=== PATIENT | male | born 1980 | race Caucasian/White ===

== ENCOUNTER 2025-06-02 14:39 | Observation (INO) | payer OTHER, SELFPAY ==
[2025-06-02] VITALS (7 sets, daily range): BP systolic 176–195; BP diastolic 105–120; PULSE 77–97; RESP 14–26; TEMP 37.1–37.5; O2SAT 88–100; BMI 36.8; BMI 36.9
--- NOTE | 2025-06-02 16:03 | CT_ITS ---
PROCEDURE: CT BRAIN/HEAD WITHOUT CONTRAST 06/02/2025 REASON FOR EXAM: DIZZINESS, HYPERTENSION TECHNIQUE: Procedure Code: CTBR Modality: CT Procedure: BRAIN/HEAD WITHOUT CONTRAST Coronal and Sagittal reconstruction series were provided. One or more dose reduction techniques were used (e.g., Automated exposure control, adjustment of the mA and/or kV according to patient size, use of iterative reconstruction technique. RADIATION DOSE SUMMARY: CTDlvol: 44.99 mGy DLP: 846.73 mGycm COMPARISON: None. FINDINGS: No acute intracranial hemorrhage, extra-axial collection, mass effect or evidence of acute infarct. Ventricles and subarachnoid spaces are normal in size. Orbital contents are unremarkable. Intact skull base and calvarium. Mild mucosal thickening in the floors of the maxillary sinuses, and in the anterior left ethmoid air cells/left frontoethmoidal recess. No mastoid effusions. CT/Brain/Head without Contrast IMPRESSION: No acute intracranial abnormality. Reading Location: [id number]
--- NOTE | 2025-06-02 16:10 | EDS_ITS ---
HPI History of Present Illness Chief Complaint: Dizziness Narrative Narrative: 44-year-old male who denies significant past medical history presents from urgent care with elevated blood pressure, as well as dizziness and nausea. He states his symptoms began on night, approximately 4 days ago. He states that he was having more vertiginous type symptoms. He awoke in the middle of the night with nausea and dry heaving. He states that he was having problems ambulating because he had to see legs. His gait felt unsteady. He spent the night dry heaving and on the floor by the toilet because of all the dizziness. He denies any headache. He thought his symptoms resolved, but over the last few days he has had episodes where his hearing out of his right ear is diminished severely. He states that it comes and goes. When it goes, he feels very nauseated. He has not had any vomiting. No fevers or chills, no chest pain or shortness of breath, no headaches. He went to urgent care and it was noticed that his blood pressure was over 200 systolic. He denies any history of hypertension, no family history of hypertension as well. PFSH [facility] Home Medications ?Medication ?Instructions ?Recorded ?Last Taken ?Type cholecalciferol (vitamin D3) 25 25 mcg PO DAILY Unknown History mcg (1,000 unit) chewable tablet (VitaJoy Daily D) echinacea 380 mg capsule 380 mg PO DAILY 06/02/25 Unk nown History magnesium 250 mg tablet 250 mg PO DAILY 06/02/25 Unk nown History omega-3 fatty acids 1,000 mg 1,000 mg PO DAILY 5 Unknown History capsule vitamin E 268 mg (400 unit) capsule 268 mg PO DAILY Unknown History Allergy/AdvReac Type Severity Reaction Status Date / Time Penicillins Allergy Vomiting Verified 06/02/25 14:44 Social History Smoking Status: Never smoker ROS ROS ED ROS Narrative Review of systems positive for hearing loss out of right ear, intermittent. Comes and goes for the last 4 days. No headache. Positive dizziness with nausea and dry heaving but no vomiting. No fevers or chills. No chest pain or shortness of breath. No exacerbating or alleviating factors. Not necessarily worse with standing. Hearing diminished most recently while in the hallway, lasting 2 minutes. EXAM Physical Exam Narrative Exam Narrative: Differential diagnosis includes but not limited to acoustic neuroma versus hypertensive urgency versus emergency. Also the differential would be brain mass. He does have elevated blood pressure of 195/115 here. He will be given hydralazine and placed on a cardiac rehabilitation specialist. Basic lab work will be obtained. I do feel he merits CT of the brain. However, his neurological examination is nonfocal, nonlateralizing. I have low suspicion for stroke or intracranial hemorrhage. Inspection of the right TM shows no evidence of erythema or perforation. No mastoid tenderness or erythema. No cerumen impaction. Const Vital Signs: 06/02/25 14:40 06/02/25 14:47 06/02/25 16:39 Temperature 99.5 F H Temperature Source Oral Pulse Rate 97 77 Respiratory Rate 16 14 Respiratory Pattern Blood Pressure 195/115 H 195/120 H Blood Pressure Mean 141 145 Pulse Ox 88 98 Oxygen Delivery Method Room Air Room Air Room Air 06/02/25 17:04 06/02/25 18:00 Temperature Temperature Source Pulse Rate 82 Respiratory Rate 18 Respiratory Pattern Normal Blood Pressure 191/107 H Blood Pressure Mean 135 Pulse Ox 98 Oxygen Delivery Method Room Air MDM MDM MDM Narrative Medical decision making narrative: The differential diagnosis includes but not limited to intracranial hemorrhage versus hypertensive encephalopathy versus hypertensive urgency versus emergency. EKG was obtained and interpreted by myself independently as normal sinus rhythm at 78 bpm without ectopy or acute ST changes. No STEMI. Patient is not having chest pain as well. I reviewed his laboratory work and he has normal white count 6.1, hemoglobin 14.4, hematocrit 40.4, platelet count 199. Sodium normal at 136 with potassium 3.3, normal carbon dioxide of 27.9, BUN of 15 and creatinine 1.02. Glucose 114 with a normal anion gap of 8. Calcium normal at 8.7. I reviewed the radiology report of the CT of the brain which shows no acute process. Patient was placed on a cardiac rehabilitation specialist. His blood pressure remains elevated even after 10 of hydralazine. It was as low as 181 systolic, but is now 191/107. He will be given additional hydralazine, and he states that he did have another episode of hearing loss out of his right ear that was brief. Given his accelerated hypertension, I do feel that he requires observation for blood pressure control. Patient will be discussed with the hospitalist for observation versus admission. Disposition is assigned to observation to the PCU. Patient is in stable condition. History & Record Review Discussion w/independent historian: Patient Additional record(s) reviewed:: No prior records (No prior ED visit) Lab Data Attestation: I reviewed the patient's lab results. Labs: Laboratory Results - last 24 hr 06/02/25 16:25 WBC 6.1 RBC 4.60 Hgb 14.4 Hct 40.4 MCV 87.8 MCH 31.3 MCHC 35.6 RDW Std Deviation 39.3 RDW Coeff of Abdirizak 12.1 Plt Count 199 MPV 9.8 Immature Gran % (Auto) 0.200 Neut % (Auto) 71.4 H Lymph % (Auto) 17.3 L Harrison % (Auto) 10.0 Eos % (Auto) 0.8 Baso % (Auto) 0.3 Absolute Neuts (auto) 4.3 Absolute Lymphs (auto) 1.05 Nucleated RBC % 0 Sodium 136 Potassium 3.3 Chloride 100 Carbon Dioxide 27.9 Anion Gap 8 BUN 15 Creatinine 1.02 Estim Creat Clear Calc 112.24 Est GFR (MDRD) Non-Af 92 BUN/Creatinine Ratio 15.0 Glucose 114 H Calcium 8.7 Radiography Diagnostic Testing: Clinical Impression(s) from Imaging Studies Brain CT 06/02/25 16:03 IMPRESSION: No acute intracranial abnormality. Reading Location: [facility] Management Discussion w/another healthcare provider: Hospitalist (Dr. Gokul Vergara) Discharge Plan Dx/Rx/DC Orders Clinical Impression: Severe uncontrolled hypertension, Hypertensive urgency, Hearing loss associated with syndrome of right ear, Dizziness Disposition Disposition: Acute Care Hospital [facility]
[2025-06-02 16:43] LABS: Hematocrit 40.4 % (40-54); Hemoglobin 14.4 g/dL (13.0-16.5); Immature Granulocytes Count 0.010 X10^3/uL (0.0-0.0); Mean Corp Hgb Conc 35.6 g/dL (32-36); Mean Corpuscular Volume 87.8 fL (80-94); Mean Platelet Vol. 9.8 fl (6.2-12.0); NRBC Flagged by Analyzer 0 % (0-5); Platelet Count 199 K/mm3 (150-450); RBC Distribution Width CV 12.1 % (11.6-14.6); RBC Distribution Width SD 39.3 fl (35.1-43.9); Red Blood Count 4.60 M/mm3 (4.6-6.2); White Blood Count 6.1 K/mm3 (4.4-11.0)
[2025-06-02 17:13] LABS: Anion Gap 8 (5-15); BUN 15 mg/dL (4-19); BUN/Creat Ratio 15.0 RATIO (10-20); Calcium,Total 8.7 mg/dL (7.6-11.0); Carbon Dioxide 27.9 mmol/L (21.0-32.0); Chloride 100 mmol/L (98-108); Estimated Creatinine Clearance 112.24 ml/min (50-250); Glucose 114 mg/dL (70-99); Potassium 3.3 mmol/L (3.3-5.1)
--- NOTE | 2025-06-02 18:45 | PCM.HP.STD ---
[facility] - General General Date of Admission: 06/02/25 Date of Service: 06/02/25 Chief Complaint: Dizziness with ataxia and nausea/vomiting HPI Narrative ANNEMARIE HUDSON, is a 44 M who presented to [facility] ED on 06/02/2025 with dizziness with ataxia and nausea/vomiting. Medical history significant for hypertension and class II obesity. Patient was on lisinopril about 2 to 3 years ago but notes he was able to come off of this due to improvement in lifestyle modifications. Not currently taking any home medications. Patient developed symptoms of dizziness with ataxia and nausea with vomiting about 4 days ago. No prior history of vertigo. He felt the symptoms resolved by midday Monday but over the last few days he has had episodes where hearing out of his right ear is severely diminished. He notes that when the hearing improves, he feels very nauseated. He otherwise denies any fevers or chills, chest pain, shortness of breath or headaches. He went to urgent care today who noted that his blood pressure was over 200 systolic so they sent him to the ED for further evaluation. In the ED his blood pressure was in the 190s over 100s. He was given 2 doses of IV hydralazine 10 mg without much improvement. He was reporting some vertigo type symptoms in the ED that improved with him laying back in bed. Given his persistent hypertension and dizziness/balance concerns, hospitalist was contacted for admission. I saw the patient at bedside in the ED. Patient was laying back in bed with fairly comfortably, in no acute distress. He denied any vertigo type symptoms currently but did note that when he sits up he has some of the symptoms. He has felt anxious since arrival here as he has been seeing his blood pressure is remaining elevated. Has never had blood pressures this elevated before. Patient lives at home with his 20-year-old son and has good functional status at baseline. No other recent medical concerns. Will be admitted for further management. [facility] Medical History (Updated 06/02/25 @ 23:[address] Tino Vergara, ) Hearing loss, right Anxiety Kidney stones Non-smoker Migraines Home Medications ?Medication ?Instructions ?Recorded ?Last Taken ?Type cholecalciferol (vitamin D3) 25 25 mcg PO DAILY 06/02/25 Unknown History mcg (1,000 unit) chewable tablet (VitaJoy Daily D) echinacea 380 mg capsule 380 mg PO DAILY 06/02/25 Unknown History magnesium 250 mg tablet 250 mg PO DAILY 06/02/25 Unknown History omega-3 fatty acids 1,000 mg 1,000 mg PO DAILY 06/02/25 Unknown History capsule vitamin E 268 mg (400 unit) capsule 268 mg PO DAILY 06/02/25 Unknown History Allergy/AdvReac Type Severity Reaction Status Date / Time Penicillins Allergy Vomiting Verified 06/02/25 14:44 Surgical History (Updated 06/02/25 @ 20:59 by Genia Amaya) History of repair of biceps tendon Social History Smoking Status: Never smoker ROS Constitutional Constitutional: Denies chills, fatigue, fever(s) or weakness Eyes Eyes: Denies change in vision Cardiovascular Cardiovascular: Denies chest pain, dyspnea on exertion, edema, lightheadedness or palpitations Respiratory/Chest Respiratory/Chest: Denies cough or shortness of breath at rest Gastrointestinal Gastrointestinal: Reports nausea and vomiting; Denies abdominal pain, constipation or diarrhea Musculoskeletal Musculoskeletal: Denies arthralgias or myalgias Neurologic Neurologic: Reports abnormal gait, disequilibrium and dizziness; Denies abnormal speech, confusion, focal weakness, headache(s), numbness or tingling Vital Signs Vital Signs Vital Signs: 06/02/25 14:40 06/02/25 14:47 06/02/25 16:39 Temperature 99.5 F H Temperature Source Oral Pulse Rate 97 77 Respiratory Rate 16 14 Respiratory Pattern Blood Pressure 195/115 H 195/120 H Blood Pressure Mean 141 145 Pulse Ox 88 98 Oxygen Delivery Method Room Air Room Air Room Air 06/02/25 17:04 06/02/25 18:00 Temperature Temperature Source Pulse Rate 82 Respiratory Rate 18 Respiratory Pattern Normal Blood Pressure 191/107 H Blood Pressure Mean 135 Pulse Ox 98 Oxygen Delivery Method Room Air Weight Weight: 113.171 kg Body Mass Index (BMI) 36.8 Physical Exam Const alert, oriented x3 and no apparent distress Constitutional Narrative: Pleasant middle-age male, class II obesity, laying back in bed fairly comfortably, conversing normally, in no acute distress. General Appearance: cooperative and comfortable HEENT normocephalic, head/scalp atraumatic, hearing grossly normal bilaterally, nasal mucous membranes and turbinates normal and moist oral mucous membranes Eyes PERRL, EOMs intact bilaterally and conjunctivae normal Neck full ROM Chest inspection of chest normal Resp normal respiratory effort, normal air movement, no use of accessory muscles and clear to auscultation bilaterally Cardio regular rate, regular rhythm, no murmurs and peripheral pulses 2+ throughout GI normal to inspection, nondistended, normoactive bowel sounds, soft to palpation, non-tender and non-distended Back/Spine normal ROM Extremity normal to inspection, full ROM and no pedal edema Skin no rashes or lesions noted Neuro oriented x3, moves all extremities and no focal motor deficits Coordination / Balance: [id number] test normal and [id number] test normal Speech: speech normal Motor Exam: strength 5/5 throughout Psych mental status grossly normal Mood & Affect: anxious Results Lab / Micro Data 06/02/25 16:25 06/02/25 16:25 Labs: Laboratory Results - last 24 hr 06/02/25 16:25: WBC 6.1, RBC 4.60, Hgb 14.4, Hct 40.4, MCV 87.8, MCH 31.3, MCHC 35.6, RDW Std Deviation 39.3, RDW Coeff of Abdirizak 12.1, Plt Count 199, MPV 9.8, Immature Gran % (Auto) 0.200, Neut % (Auto) 71.4 H, Lymph % (Auto) 17.3 L, Calhoun % (Auto) 10.0, Eos % (Auto) 0.8, Baso % (Auto) 0.3, Absolute Neuts (auto) 4.3, Absolute Lymphs (auto) 1.05, Nucleated RBC % 0, Sodium 136, Potassium 3.3, Chloride 100, Carbon Dioxide 27.9, Anion Gap 8, BUN 15, Creatinine 1.02, Estim Creat Clear Calc 112.24, Est GFR (MDRD) Non-Af 92, BUN/Creatinine Ratio 15.0, Glucose 114 H, Calcium 8.7 Imaging Radiology Impression Brain CT 06/02/25 16:03 IMPRESSION: No acute intracranial abnormality. Reading Location: [facility] Assessment & Plan Assessment/Plan (1) Stroke-like symptoms: (2) Hypertensive urgency: PLAN: Plan Patient is a 44-year-old male who presented [facility] ED on 06/02/2025 with dizziness with ataxia and nausea/vomiting. 1. Strokelike symptoms with hypertensive urgency ? Admit under observation status to PCU. Neurology consulted. Presented with dizziness with ataxia and nausea/vomiting. Onset 4 days prior to admission and has been intermittent since then. Has been accompanied by intermittent hearing loss. Blood pressure severely elevated to the 190s over 110s in the ED. Given 2 doses of IV hydralazine 10 mg without much improvement. Prior history of hypertension, was on lisinopril about 2 to 3 years ago but then states he was able to come off after lifestyle modifications. No prior history of severe hypertension like this. CT head negative. Given his persistent hypertension and the symptoms, will need to rule out stroke. Orders placed per stroke protocol order set. MRI brain and echo ordered. A.m. lipid panel ordered. A1c and TSH normal. PT/OT/case management consulted. Will initiate baby aspirin and statin. Appreciate further neurology recommendations. 2. Class II obesity ? BMI 36 on admit. Complicates hospital course and care. Encouraged lifestyle modifications. DVT prophylaxis: SCDs CODE STATUS: Full code, verified Expected disposition: Home, 1 to 2 days Total clinical time spent by myself addressing the patient's medical issues, reviewing all the data, and collaborating with patient's care team: 58 minutes. Charges/Coding Visit Charges Inpatient E&M: 01287 Init Hosp L2
--- NOTE | 2025-06-02 18:51 | MRI_ITS ---
PROCEDURE: BRAIN WITHOUT CONTRAST 06/03/2025 REASON FOR EXAM: CVA RULE OUT TECHNIQUE: Procedure Code: MRIBR Modality: MR Procedure: BRAIN WITHOUT CONTRAST Multiplanar and multisequence images were obtained. COMPARISON: CT head June 02, 2025. FINDINGS: Brain: Several (around 10) hyperintense foci on T2 and FLAIR in the subcortical white matter, predominantly in the left frontal lobe, nonspecific. No restricted diffusion. No hemorrhage. No mass-effect or midline shift. The orbits are unremarkable. Ventricles: Normal. Major Intracranial Vessels: Patent. Sinuses: Mucosal thickening of the ethmoidal cells and maxillary sinuses. Mastoids: The mastoid cells are clear. MRI/Brain without Contrast IMPRESSION: Several hyperintense foci on T2 and FLAIR in the subcortical white matter, pred ominantly in the left frontal lobe, nonspecific. The differential diagnosis may include chronic small-vessel disease, vasculiti s, infection, demyelinating disease or migraines. Reading Location: [facility]
--- NOTE | 2025-06-02 18:51 | ECHOD_ITS ---
Reason For Study Reason For Study: TIA/Stroke Procedure This was a 2D Doppler, Color Flow transthoracic echocardiogram. Myocardial strain analysis was performed in this exam to aid in the assessment of cardiac function. Exam performed in department. Left Ventricle Normal LV size. Moderate concentric left ventricular hypertrophy. The global longitudinal strain = -15.3% (abnormal). The left ventricular ejection fraction is 60 %. Stage 1 diastolic dysfunction. No regional wall motion abnormalities noted. Right Ventricle Mildly dilated right ventricle. Normal systolic function. Atria The left atrium is mildly enlarged. Normal right atrium. Bubble contrast study is negative for PFO/ASD. Mitral Valve Normal mitral valve. Trivial mitral valve insufficiency. Tricuspid Valve Normal tricuspid valve. Mild (1+) tricuspid valve insufficiency. Pulmonary artery systolic pressure is 23 mmHg. Aortic Valve Trisinus/trileaflet aortic valve. Pulmonic Valve Normal pulmonic valve. Great Vessels Aortic root size upper limits of normal. Pericardium/Pleural No pericardial effusion. Medication Performed a rapid injection of agitated mix of 9 cc saline and 1cc air to assess for atrial septal defect. MMode/2D Measurements & Calculations LVIDd: 4.7 cm IVSd: 1.5 cm Ao root diam: 3.9 cm LVIDs: 3.3 cm LVPWd: 1.4 cm RVDd: 4.5 cm FS: 29.1 % LAV(MOD-bp): 75.1 ml LVAd ap4: 42.4 cm2 LVAd ap2: 41.2 cm2 LAV(MOD-bp) Indexed: 33.1 ml/m2 LVLd ap4: 10.3 cm LVLd ap2: 10.2 cm LAV(MOD-sp2): 59.8 ml EDV(MOD-sp4): 151.9 ml EDV(MOD-sp2): 140.2 ml LAV(MOD-sp4): 78.7 ml EDV(sp4-el): 148.2 ml EDV(sp2-el): 140.8 ml LVAs ap4: 24.3 cm2 LVAs ap2: 24.2 cm2 LVLs ap4: 8.1 cm LVLs ap2: 8.9 cm ESV(MOD-sp4): 65.3 ml ESV(MOD-sp2): 61.3 ml ESV(sp4-el): 61.3 ml ESV(sp2-el): 56.0 ml EF(MOD-sp4): 57.0 % EF(MOD-sp2): 56.3 % EF(sp4-el): 58.6 % SV(MOD-sp4): 86.5 ml SV(MOD-sp2): 78.9 ml SV(sp4-el): 86.9 ml SI(MOD-sp4): 38.1 ml/m2 SI(MOD-sp2): 34.8 ml/m2 LA A4 area: 24.9 cm2 LA dimension(2D): 4.7 cm RA A4 area: 15.9 cm2 TAPSE: 1.9 cm Time Measurements MV dec time: 0.23 sec Doppler Measurements & Calculations MV E max david: 71.0 cm/sec Lat Peak E' David: 7.7 cm/sec Med Peak E' David: 7.3 cm/sec MV A max david: 77.4 cm/sec E/E' lat: 9.2 E/E' med: 9.7 MV E/A: 0.92 MV dec slope: 306.1 cm/sec2 Ao V2 max: 133.7 cm/sec LV V1 max: 122.4 cm/sec Ao max P.2 mmHg LV V1 max P.0 mmHg Ao V2 mean: 93.6 cm/sec LV V1 mean P.1 mmHg Ao mean P.0 mmHg LV V1 mean: 81.8 cm/sec Ao V2 VTI: 27.8 cm LV V1 VTI: 22.6 cm AV (velocity ratio): 0.81 PA V2 max: 120.0 cm/sec TR max david: 223.7 cm/sec TR max P.0 mmHg ECHO/Echo Complete Interpretation Summary The left ventricular ejection fraction is 60 %. Stage 1 diastolic dysfunction. Moderate concentric left ventricular hypertrophy. Mildly dilated right ventricle. The left atrium is mildly enlarged. Mild (1+) tricuspid valve insufficiency. Ordering Physician: Tino Vergara Performed By: Antonino Hanson RDCS
[2025-06-02] MEDS: MELATONIN 3 MG TABLET PO (21:41)
[2025-06-03 01:07] VITALS: BP 166/102; PULSE 80; RESP 16; TEMP 36.6; O2SAT 98
[2025-06-03 04:01] VITALS: BMI 36.9
[2025-06-03 05:07] VITALS: BP 175/101; PULSE 81; RESP 16; TEMP 36.6; O2SAT 98
[2025-06-03 05:52] LABS: Hematocrit 40.0 % (40-54); Hemoglobin 14.3 g/dL (13.0-16.5); Mean Corp Hgb Conc 35.8 g/dL (32-36); Mean Corpuscular Volume 88.5 fL (80-94); Mean Platelet Vol. 10.2 fl (6.2-12.0); Platelet Count 197 K/mm3 (150-450); RBC Distribution Width CV 12.2 % (11.6-14.6); RBC Distribution Width SD 39.6 fl (35.1-43.9); Red Blood Count 4.52 M/mm3 (4.6-6.2); White Blood Count 5.6 K/mm3 (4.4-11.0)
[2025-06-03 06:24] LABS: Anion Gap 9 (5-15); BUN 12 mg/dL (4-19); BUN/Creat Ratio 11.3 RATIO (10-20); Calcium,Total 9.2 mg/dL (7.6-11.0); Carbon Dioxide 26.2 mmol/L (21.0-32.0); Chloride 102 mmol/L (98-108); Cholesterol 213 mg/dL (<=200); Estimated Creatinine Clearance 110.22 ml/min (50-250); Glucose 101 mg/dL (70-99); Low Density Lipoprotein Calc. 149 mg/dL; Potassium 3.7 mmol/L (3.3-5.1); Triglycerides 151 mg/dL; Very Low Density Lipoprotein 30 mg/dL (5-40); cholesterol:hdl ratio screen 5.77
[2025-06-03 07:10] VITALS: O2SAT 95
[2025-06-03 07:50] VITALS: BP 182/110; PULSE 82; RESP 18; TEMP 36.8; O2SAT 97
[2025-06-03] MEDS: Cholecalciferol (VIT D3) 25 MCG TABLET (1,000 UNITS) PO (07:51)
[2025-06-03] MEDS: Magnesium Chloride 64 MG Delay Rel.Tablet PO (07:51)
[2025-06-03 08:15] VITALS: BMI 36.9
[2025-06-03 09:16] VITALS: BMI 36.9
[2025-06-03 09:45] VITALS: BP 150/88; PULSE 68; RESP 18; TEMP 36.5; O2SAT 98
--- NOTE | 2025-06-03 13:08 | NEURO.CONS ---
Assessment and Plan: Neuro Assessment/Plan ANNEMARIE HUDSON is a 44 M with a past medical history of HTN, being evaluated by Teleneurology for transient episodes of vertigo and hearing loss. Based on history, concern for paroxysmal vertigo episodes with loss to clear decrease in hearing on the R ear. Exam is largely benign as patient returned to baseline. Based on history, atypical to have episodic hearing loss with peripheral vertigo that is so closely related to the vertigo itself with clear ear infection or other structural ear issues. In lieu of infection or other structural issues, concern is for damage to the Right AICA vessel with involvement of the labyrinthine artery. Ddx includes hypertensive urgency (although does not generally lead to unilater hearing changes), TIA, cannot rule out another stuctural lesion. Plan: - maintain normotension - defer to PCP. Goal BP is <120/80 per AHA guidelines - rec ASA 81mg if this is a TIA. Rec also for CTA head.neck to eval for structural issues with the Rverterbral and basilar arteries - followup with ENT if this recurs and recommend MRI Brain with thin cuts through the brainstem is this recurs outside hypertensive episodes. I personally attended this patient and spent a total time of 45 minutes evaluating this patient including clinical assessment, review of chart, medical history imaging, and determining appropriate treatment and workup. HPI Consult Data Date of Consult: 06/03/25 HPI Narrative HPI Narrative: ANNEMARIE HUDSON, is a 44 M who presented to [facility] ED on 06/02/2025 with dizziness with ataxia and nausea/vomiting. Medical history significant for hypertension and class II obesity. Patient was on lisinopril about 2 to 3 years ago but notes he was able to come off of this due to improvement in lifestyle modifications. Not currently taking any home medications. Patient developed symptoms of dizziness with ataxia and nausea with vomiting about 4 days ago. No prior history of vertigo. He felt the symptoms resolved by midday Monday but over the last few days he has had episodes where hearing out of his right ear is severely diminished. He notes that when the hearing improves, he feels very nauseated. He otherwise denies any fevers or chills, chest pain, shortness of breath or headaches. He went to urgent care today who noted that his blood pressure was over 200 systolic so they sent him to the ED for further evaluation. In the ED his blood pressure was in the 190s over 100s. He was given 2 doses of IV hydralazine 10 mg without much improvement. He was reporting some vertigo type symptoms in the ED that improved with him laying back in bed. Given his persistent hypertension and dizziness/balance concerns, hospitalist was contacted for admission. I saw the patient at bedside in the ED. Patient was laying back in bed with fairly comfortably, in no acute distress. He denied any vertigo type symptoms currently but did note that when he sits up he has some of the symptoms. He has felt anxious since arrival here as he has been seeing his blood pressure is remaining elevated. Has never had blood pressures this elevated before. Patient lives at home with his 20-year-old son and has good functional status at baseline. No other recent medical concerns. Will be admitted for further management. Neurologic History Patient states the dizziness and nausea came in spells and had dry heaving. Never had vertigo like that before. The dizziness and nausea started when the R ear hearing went out but now can hear again. The room would spin with the dizziness or move side to side. The symptoms would come and go and between bouts would be fine. Never had numbness numbness or tingling, no diplopia. he almost fell but never fully fell. Patient was asleep and it was 3am and woke up sweaty, on the way back from the bathroom and everything became capsized. Denies headache. He does not measure his BP at home. No new meds at home. No URI, no drainage from ears. Was not taking an BP medications prior to coming to the hospital. Been on lexapro, since October. Neurologic Exam -? General: Laying comfortably in bed; in no acute distress. -? HENT: Normal oropharynx and mucosa. Normal external appearance of ears and nose. Exophthalmos. -? Neck: Supple, no pain or tenderness -? CV:? No peripheral edema. -? Pulmonary:? Normal respiratory effort. -? Ext: No cyanosis, edema, or deformity -? Skin: No rash. Normal palpation of skin.? -? Musculoskeletal: full range of motion; no joint tenderness. Normal digits and nails by inspection. No clubbing. -? NEURO: -? Mental Status: The patient was alert and oriented to time, place, and person. Normal recent/remote memory, concentration, and general fund of knowledge. -? Language: speech is clear.? Naming, repetition, fluency, and comprehension intact. -? Cranial Nerves: PERRL 2mm/brisk. EOMI, visual savage full, no facial asymmetry, facial sensation intact, hearing intact, tongue midline, no evidence of atrophy or fibrillations. -? Motor: normal bulk, tone, and strength throughout. No pronator drift or satelliting. Upper and lower extremities equal bilaterally. -? Coordination: No dysmetria on [id number], finger follow finger or [id number]. -? Gait- Gait initiation was normal. Narrow base with good heel strike and stride length was observed during ambulation. Turns were in stride. Patient was able to walk normally in tandem. Romberg was normal. [facility] [place] Medical History (Updated 06/02/25 @ 23:[address] Tino Vergara, DO) Hearing loss, right Anxiety Kidney stones Non-smoker Migraines Home Medications ?Medication ?Instructions ?Recorded ?Last Taken ?Type cholecalciferol (vitamin D3) 25 25 mcg PO DAILY 06/02/25 Unknown History mcg (1,000 unit) chewable tablet (VitaJoy Daily D) echinacea 380 mg capsule 380 mg PO DAILY 06/02/25 Unknown History magnesium 250 mg tablet 250 mg PO DAILY 06/02/25 Unknown History omega-3 fatty acids 1,000 mg 1,000 mg PO DAILY 06/02/25 Unknown History capsule vitamin E 268 mg (400 unit) capsule 268 mg PO DAILY 06/02/25 Unknown History amlodipine 10 mg tablet 10 mg PO DAILY #30 tabs 06/03/25 Unknown Rx hydrochlorothiazide 12.5 mg tablet 12.5 mg PO DAILY #30 tabs 06/03/25 Unknown Rx lisinopril 20 mg tablet 20 mg PO DAILY #30 tabs 06/03/25 Unknown Rx Allergy/AdvReac Type Severity Reaction Status Date / Time Penicillins Allergy Vomiting Verified 06/02/25 14:44 Surgical History (Updated 06/02/25 @ 20:59 by Genia Amaya) History of repair of biceps tendon Social History Smoking Status: Never smoker Vital Signs Vital Signs Vital Signs: 06/02/25 14:40 06/02/25 14:47 06/02/25 16:39 Temperature 99.5 F H Temperature Source Oral Pulse Rate 97 77 Pulse Strength Respiratory Rate 16 14 Respiratory Effort Respiratory Depth Respiratory Pattern Blood Pressure 195/115 H 195/120 H Blood Pressure Mean 141 145 Blood Pressure Source Blood Pressure Position Blood Pressure Location Pulse Ox 88 98 Oxygen Delivery Method Room Air Room Air Room Air 06/02/25 17:04 06/02/25 18:00 06/02/25 19:18 Temperature 99.5 F H Temperature Source Pulse Rate 82 82 Pulse Strength Respiratory Rate 18 18 Respiratory Effort Respiratory Depth Respiratory Pattern Normal Blood Pressure 191/107 H 191/107 H Blood Pressure Mean 135 135 Blood Pressure Source Blood Pressure Position Blood Pressure Location Pulse Ox 98 98 Oxygen Delivery Method Room Air 06/02/25 20:00 06/02/25 21:07 06/02/25 21:30 Temperature 98.7 F Temperature Source Oral Pulse Rate 94 92 Pulse Strength Respiratory Rate 26 H 16 Respiratory Effort Respiratory Depth Respiratory Pattern Blood Pressure 176/106 H 183/105 H Blood Pressure Mean 129 131 Blood Pressure Source Monitor Blood Pressure Position Semi-Fowlers Blood Pressure Location Right Arm Pulse Ox 100 99 100 Oxygen Delivery Method Room Air Room Air Room Air 06/03/25 01:07 06/03/25 05:07 06/03/25 07:10 Temperature 98 F 98 F Temperature Source Oral Oral Pulse Rate 80 81 Pulse Strength Respiratory Rate 16 16 Respiratory Effort Respiratory Depth Respiratory Pattern Blood Pressure 166/102 H 175/101 H Blood Pressure Mean 123 125 Blood Pressure Source Monitor Monitor Blood Pressure Position Semi-Fowlers Supine Blood Pressure Location Left Arm Left Arm Pulse Ox 98 98 95 Oxygen Delivery Method Room Air Room Air Room Air 06/03/25 07:50 06/03/25 08:07 06/03/25 08:07 Temperature 98.2 F Temperature Source Temporal Pulse Rate 82 Pulse Strength Normal (2+) Respiratory Rate 18 Respiratory Effort Normal Non-Labored Respiratory Depth Normal Respiratory Pattern Normal Blood Pressure 182/110 H Blood Pressure Mean 134 Blood Pressure Source Monitor Blood Pressure Position Semi-Fowlers Blood Pressure Location Left Forearm Pulse Ox 97 Oxygen Delivery Method Room Air Room Air 06/03/25 09:45 Temperature 97.7 F L Temperature Source Temporal Pulse Rate 68 Pulse Strength Respiratory Rate 18 Respiratory Effort Respiratory Depth Respiratory Pattern Blood Pressure 150/88 H Blood Pressure Mean 108 Blood Pressure Source Monitor Blood Pressure Position Semi-Fowlers Blood Pressure Location Left Forearm Pulse Ox 98 Oxygen Delivery Method Room Air Weight Weight: 113.45 kg Body Mass Index (BMI) 36.9 EEG Results Procedure Details EEG Procedure Details: ANNEMARIE HUDSON is a 44 year old M with a past medical history of , who presents for evaluation of Electroencephalogram on DATE at TIME Lab / Micro Data 06/03/25 05:13 06/03/25 05:13 Labs: Laboratory Results - last 24 hr 06/02/25 16:25: WBC 6.1, RBC 4.60, Hgb 14.4, Hct 40.4, MCV 87.8, MCH 31.3, MCHC 35.6, RDW Std Deviation 39.3, RDW Coeff of Abdirizak 12.1, Plt Count 199, MPV 9.8, Immature Gran % (Auto) 0.200, Neut % (Auto) 71.4 H, Lymph % (Auto) 17.3 L, Ballard % (Auto) 10.0, Eos % (Auto) 0.8, Baso % (Auto) 0.3, Absolute Neuts (auto) 4.3, Absolute Lymphs (auto) 1.05, Nucleated RBC % 0, Sodium 136, Potassium 3.3, Chloride 100, Carbon Dioxide 27.9, Anion Gap 8, BUN 15, Creatinine 1.02, Estim Creat Clear Calc 112.24, Est GFR (MDRD) Non-Af 92, BUN/Creatinine Ratio 15.0, Glucose 114 H, Hemoglobin A1c 5.3, Calcium 8.7, TSH 1.080 06/03/25 05:13: WBC 5.6, RBC 4.52 L, Hgb 14.3, Hct 40.0, MCV 88.5, MCH 31.6, MCHC 35.8, RDW Std Deviation 39.6, RDW Coeff of Abdirizak 12.2, Plt Count 197, MPV 10.2, Sodium 138, Potassium 3.7, Chloride 102, Carbon Dioxide 26.2, Anion Gap 9, BUN 12, Creatinine 1.04, Estim Creat Clear Calc 110.22, Est GFR (MDRD) Non-Af 90, BUN/Creatinine Ratio 11.3, Glucose 101 H, Calcium 9.2, Triglycerides 151, Cholesterol 213 H, LDL Cholesterol, Calc 149, VLDL Cholesterol 30, HDL Cholesterol 37 L, Cholesterol/HDL Ratio 5.77 Imaging Radiology Impression Brain CT 06/02/25 16:03 IMPRESSION: No acute intracranial abnormality. Reading Location: [facility] Brain MRI 06/02/25 18:51 IMPRESSION: Several hyperintense foci on T2 and FLAIR in the subcortical white matter, predominantly in the left frontal lobe, nonspecific. The differential diagnosis may include chronic small-vessel disease, vasculitis, infection, demyelinating disease or migraines. Reading Location: [facility] Echocardiogram 06/02/25 18:51 Interpretation Summary The left ventricular ejection fraction is 60 %. Stage 1 diastolic dysfunction. Moderate concentric left ventricular hypertrophy. Mildly dilated right ventricle. The left atrium is mildly enlarged. Mild (1+) tricuspid valve insufficiency. Ordering Physician: Tino Vergara Performed By: Antonino Hanson RDCS Active Medications Active Medications Active Medications: Current Medications Generic Name Dose Route Start Last Admin Trade Name Freq PRN Reason Stop Dose Admin Acetaminophen 650 mg 06/02/25 21:02 06/03/25 07:51 Acetaminophen 325 Mg Tablet PO 650 mg Q6H PRN PRN Administration Pain 1-10 Or Fever>100.7 Amlodipine Besylate 10 mg 06/03/25 07:15 06/03/25 07:51 Amlodipine 10 Mg Tablet PO 10 mg DAILY [facility] Administration Protocol Aspirin 81 mg 06/03/25 08:00 06/03/25 07:50 Aspirin 81 Mg Tab.Chew PO 81 mg BREAKFAST RENETTA Administration Atorvastatin Calcium 80 mg 06/02/25 22:00 06/02/25 21:41 Atorvastatin Calcium 80 Mg Tablet PO 80 mg QHS RENETTA Administration Cholecalciferol 25 mcg 06/03/25 10:00 06/03/25 07:51 Cholecalciferol (Vit D3) 25 Mcg Tablet (1,000 Units) PO 25 mcg DAILY RENETTA Administration Hydrochlorothiazide 25 mg 06/03/25 07:20 06/03/25 07:50 Hydrochlorothiazide 25 Mg Tablet PO 25 mg DAILY RENETTA Administration Protocol Sodium Chloride 250 mls @ 15 mls/hr 06/02/25 22:45 IV .[id number] PRN Saline Flush Sodium Chloride 250 mls @ 15 mls/hr 06/02/25 22:45 IV .[id number] PRN Additional IVPB Infusion Lisinopril 20 mg 06/03/25 07:20 06/03/25 07:51 Lisinopril 20 Mg Tablet PO 20 mg DAILY [facility] Administration Protocol Magnesium Chloride 64 mg 06/03/25 10:00 06/03/25 07:51 Magnesium Chloride 64 Mg Delay Rel.Tablet PO 64 mg DAILY RENETTA Administration Melatonin 3 mg 06/02/25 21:02 06/02/25 21:41 Melatonin 3 Mg Tablet PO 3 mg QHS PRN PRN Administration INSOMNIA Ondansetron HCl 4 mg 06/02/25 21:02 Ondansetron 4 Mg/2 Ml Vial IV Q8H PRN PRN NAUSEA/VOMITING Sodium Chloride 10 - 40 ml 06/02/25 22:45 0.9% Saline Lock 10 Ml Syringe IV UD PRN SALINE FLUSH NIHSS NIHSS Nursing Documentation NIHSS Nursing Documentation: NIHSS: Ischemic Stroke/TIA Start: 06/02/25 21:02 Text: For PCU Patients: NIH and Neuro Check every 4 Status: Complete hours, PRN and with change in RN caregiver. Freq: [id number] Protocol: Activity Type Activity Date Activity User E-sign Co-sign Detail Recorded Client Recorded Date Recorded By Document 06/03/25 09:45 AMANDA [id number] 06/03/25 09:49 JM8 06/03/25 09:45 NIH Stroke Scale [NIHSS] A score of 0 is normal or asymptomatic . Total possible score is 42. Inpatient: RN or Physician to activate a stroke alert for onset of new stroke symptoms or with NIHSS increase >/= 3 points. Following change in neurological status, NIHSS will be performed per physician order or more frequently PRN. -1a. Level of Consciousness 0 - Alert; keenly responsive -1b. LOC Questions 0 - Answers BOTH questions correctly -1c. LOC Commands 0 - Performs BOTH tasks correctly -2. Best Gaze 0 - Normal -3. Visual 0 - No visual loss -4. Facial Palsy 0 - Normal symmetrical movements -5a. Left Arm 0 - No drift; arm holds 90 ( or 45) degrees for full 10 seconds -5b. Right Arm 0 - No drift; arm holds 90 ( or 45) degrees for full 10 seconds -6a. Left Leg 0 - No drift; leg holds 30- degree position for full 5 seconds -6b. Right Leg 0 - No drift; leg holds 30- degree position for full 5 seconds -7. Limb Ataxia 0 - Absent -8. Sensory 0 - Normal; no sensory loss -9. Best Language 0 - No aphasia; normal -10. Dysarthria 0 - Normal -11. Extinction and Inattention 0 - No abnormality -Total 0 Query Text:A score of 0 is normal or asymptomatic. Total possible score is 42 . ED: Notify Physician for NIHSS increase by > / = 3 points. Inpatient: RN or Physician to activate a stroke alert for NIHSS increase of > / = 3 points. Coma Scale [Assess] -Eye Opening Spontaneous -Motor Obeys Commands -Verbal Oriented [Total] -Coma Scale Total 15
--- NOTE | 2025-06-03 13:39 | DCINST_ITS ---
Discharge Instructions DC O2, CPAP, BIPAP needs Home O2 Discharge instructions: No Dressing / Incision Discharge Activity: Return to Normal Activity Weight Bearing Status: Full weight bearing Follow Up Care Test Results: Test results from this visit will be discussed in further detail at your follow- up appointment, if applicable. Discharge Plan Admission Admit Date/Time: 06/02/25 18:46 Primary Reason for Your Visit: Hypertensive urgency Attending Provider: Michael Milian Primary Care Provider: Linda Mccall,Out of Consulting Providers: Wagner Kinsey; Mariah Prince; Alisa Whitehead; Margy Talbot; Lucy Cesar; Michael Downey; Cinthya Lea; Micheal Malagon; Jose R Suarez; Rogelio Gusman; Kezia Boyle; Lisette Kirkpatrick; Ronni Oscar; Lissette Fleming; Erika Maldonado; Lonnie Pierson; Dong Tafoya; Abdelrahman Michele; Justo Sanchez; Meagan Carpio; Femi Bartlett; Tino Vergara Discharge Orders/Prescriptions Prescriptions: New lisinopril 20 mg Tablet 20 mg PO DAILY Qty: 30 0RF amlodipine 10 mg Tablet 10 mg PO DAILY Qty: 30 0RF hydrochlorothiazide 12.5 mg tablet 12.5 mg PO DAILY Qty: 30 0RF Continued cholecalciferol (vitamin D3) [VitaJoy Daily D] 25 mcg (1,000 unit) tablet,chewable 25 mcg PO DAILY vitamin E 268 mg (400 unit) capsule 268 mg PO DAILY omega-3 fatty acids 1,000 mg capsule 1,000 mg PO DAILY echinacea 380 mg capsule 380 mg PO DAILY magnesium 250 mg tablet 250 mg PO DAILY Referrals / Follow Up: Antione Johnson DO [Non-Staff, Medical] - See Referral Note Referral Note: In 2 weeks [facility] Doctor,Out of [Primary Care Provider, Medical] Disposition Disposition (needs filled in before D/C Order can be placed): Home, Self Care
--- NOTE | 2025-06-03 13:43 | DS.PCM_ITS ---
Providers Date of Admission: 06/02/25 Date of Discharge: 06/03/25 Primary Care Physician: Out of Town Doctor Consultations 06/02/25 21:02 Consult: Tele-Neurology Routine Consulting Provider: [facility] Reason for Consult: Acute Ischemic Stroke/TIA EMERGENT Consult: No MD Notified: Yes Date Notified: 06/02/25 Time Notified: 21:58 Method of Notification: Answering Service Nursing Unit Staff Notify [facility] of Tele-Neurology Consult: Yes Reason For Visit: HYPERTENSIVE URGENCY Diagnosis Discharge Diagnosis (1) Stroke-like symptoms: Status: Acute Code(s): R29.90 - Unspecified symptoms and signs involving the nervous system (2) Hypertensive urgency: Status: Acute Code(s): I16.0 - Hypertensive urgency Plan 1. Hypertensive urgency #2 vertigo-etiology unclear #3 ataxia-etiology unclear Medications at Discharge Home Medications cholecalciferol (vitamin D3) 25 mcg (1,000 unit) chewable tablet (VitaJoy Daily D) 25 mcg PO DAILY 06/02/25 echinacea 380 mg capsule 380 mg PO DAILY 06/02/25 magnesium 250 mg tablet 250 mg PO DAILY 06/02/25 omega-3 fatty acids 1,000 mg capsule 1,000 mg PO DAILY 06/02/25 vitamin E 268 mg (400 unit) capsule 268 mg PO DAILY 06/02/25 amlodipine 10 mg tablet 10 mg PO DAILY #30 tabs 06/03/25 hydrochlorothiazide 12.5 mg tablet 12.5 mg PO DAILY #30 tabs 06/03/25 lisinopril 20 mg tablet 20 mg PO DAILY #30 tabs 06/03/25 Hospital Course Operations None Procedures 2-D Echocardiogram Summary of Care Provided Minutes Spent on Discharge: 31 Hospital Course: This 44-year-old white male was seen in the emergency room at [facility] with a chief complaint of dizziness and nausea. Patient also complained of having problems ambulating because he had shaky legs. He felt his gait was unsteady. Patient went to urgent care and it was noted that his blood pressure was over 200 systolic, patient had a history of hypertension in the past but stopped his medication, according to the patient, because he had lifestyle changes that made his blood pressure go down. Workup in the emergency room included a CT of the brain which showed no acute process, his blood pressure was noted to be elevated in the emergency room and he was given IV hydralazine. Lab work was remarkable for potassium of 3.3, BUN and creatinine were normal, white blood cell count was normal and hemoglobin was normal. EKG showed a normal sinus rhythm at 78. Patient was placed in observation status with hypertensive urgency as a diagnosis along with strokelike symptoms, he underwent an MRI of the brain which showed no evidence of stroke, he was seen in consultation by neurology and his blood pressure was controlled with blood pressure medications. On 06/03/2025, patient was seen and examined: On examination he appeared in good health and spirits. Vital signs as documented. Skin warm and dry and without overt rashes. Neck without JVD, neck was supple, trachea midline, thyroid was normal. Lungs clear bilaterally, normal air movement was noted. Heart exam notable for regular rhythm, normal sounds and absence of murmurs, rubs or gallops. Abdomen unremarkable and without evidence of organomegaly, masses, or abdominal aortic enlargement. Bowel sounds are present, abdomen is not distended. Extremities nonedematous, no cyanosis was noted, no clubbing was noted. Neuro: Cranial nerves II through XII are grossly intact, no focal motor deficits were noted, sensation to light touch and pinprick intact, motor exam 5/5 throughout. Psych: Patient is alert and oriented x3, he does not appear anxious or depressed, he does not appear agitated. Patient was discharged home in stable condition on 06/03/2025 Weight / BMI Weight Weight: 113.45 kg Body Mass Index (BMI) 36.9 ABG / Lab / Microbiology Data 06/03/25 05:13 06/03/25 05:13 Laboratory: Laboratory Results - last 24 hr 06/02/25 16:25: WBC 6.1, RBC 4.60, Hgb 14.4, Hct 40.4, MCV 87.8, MCH 31.3, MCHC 35.6, RDW Std Deviation 39.3, RDW Coeff of Abdirizak 12.1, Plt Count 199, MPV 9.8, Immature Gran % (Auto) 0.200, Neut % (Auto) 71.4 H, Lymph % (Auto) 17.3 L, Crisp % (Auto) 10.0, Eos % (Auto) 0.8, Baso % (Auto) 0.3, Absolute Neuts (auto) 4.3, Absolute Lymphs (auto) 1.05, Nucleated RBC % 0, Sodium 136, Potassium 3.3, Chloride 100, Carbon Dioxide 27.9, Anion Gap 8, BUN 15, Creatinine 1.02, Estim Creat Clear Calc 112.24, Est GFR (MDRD) Non-Af 92, BUN/Creatinine Ratio 15.0, G lucose 114 H, Hemoglobin A1c 5.3, Calcium 8.7, TSH 1.080 06/03/25 05:13: WBC 5.6, RBC 4.52 L, Hgb 14.3, Hct 40.0, MCV 88.5, MCH 31.6, MCHC 35.8, RDW Std Deviation 39.6, RDW Coeff of Abdirizak 12.2, Plt Count 197, MPV 10.2, Sodium 138, Potassium 3.7, Chloride 102, Carbon Dioxide 26.2, Anion Gap 9, BUN 12, Creatinine 1.04, Estim Creat Clear Calc 110.22, Est GFR (MDRD) Non-Af 90, BUN/Creatinine Ratio 11.3, Glucose 101 H, Calcium 9.2, Triglycerides 151, C holesterol 213 H, LDL Cholesterol, Calc 149, VLDL Cholesterol 30, HDL Cholesterol 37 L, Cholesterol/HDL Ratio 5.77 Radiography Diagnostic Testing: Radiology Impression Brain CT 06/02/25 16:03 IMPRESSION: No acute intracranial abnormality. Reading Location: [facility] Brain MRI 06/02/25 18:51 IMPRESSION: Several hyperintense foci on T2 and FLAIR in the subcortical white matter, predominantly in the left frontal lobe, nonspecific. The differential diagnosis may include chronic small-vessel disease, vasculitis, infection, demyelinating disease or migraines. Reading Location: [facility] Echocardiogram 06/02/25 18:51 Interpretation Summary The left ventricular ejection fraction is 60 %. Stage 1 diastolic dysfunction. Moderate concentric left ventricular hypertrophy. Mildly dilated right ventricle. The left atrium is mildly enlarged. Mild (1+) tricuspid valve insufficiency. Ordering Physician: Tino Vergara Performed By: Antonino Hanson RDCS D/C Instructions Weight Bearing Status: Full weight bearing DC O2, CPAP, BIPAP Needs Home O2 Discharge instructions: No Meaningful Use Info Meaningful Use Meaningful Use Diagnoses (Choose all that apply): None applicable Discharge Plan Admission Admit Date/Time: 06/02/25 18:46 Primary Reason for Your Visit: Hypertensive urgency Attending Provider: Michael Milian Primary Care Provider: Linda Mccall,Out of Consulting Providers: Wagner Kinsey; Mariah Prince; Alisa Whitehead; Margy Talbot; Lucy Cesar; Michael Downey; Cinthya Lea; Micheal Malagon; Jose R Suarez; Rogelio Gusman; Kezia Boyle; Lisette Kirkpatrick; Ronni Oscar; Lissette Fleming; Erika Maldonado; Lonnie Pierson; Dong Tafoya; Abdelrahman Michele; Justo Sanchez; Meagan Carpio; Femi Bartlett; Tino Vergara Instructions Additional Instructions / Restrictions: Take an 81 mg aspirin daily Discharge Orders/Prescriptions Prescriptions: New lisinopril 20 mg Tablet 20 mg PO DAILY Qty: 30 0RF amlodipine 10 mg Tablet 10 mg PO DAILY Qty: 30 0RF hydrochlorothiazide 12.5 mg tablet 12.5 mg PO DAILY Qty: 30 0RF Continued cholecalciferol (vitamin D3) [VitaJoy Daily D] 25 mcg (1,000 unit) tablet,chewable 25 mcg PO DAILY vitamin E 268 mg (400 unit) capsule 268 mg PO DAILY omega-3 fatty acids 1,000 mg capsule 1,000 mg PO DAILY echinacea 380 mg capsule 380 mg PO DAILY magnesium 250 mg tablet 250 mg PO DAILY Referrals / Follow Up: Antione Johnson DO [Non-Staff, Medical] - See Referral Note Referral Note: In 2 weeks [facility] ,Out of [Primary Care Provider, Medical] Disposition Disposition (needs filled in before D/C Order can be placed): Home, Self Care Charges/Coding Visit Charges Inpatient E&M: 92901 Disch Hosp >30min
--- NOTE | 2025-06-03 14:11 | PHA.DC.MC.R ---
Pharmacy [facility] Counseling Pharmacy Service has performed discharge medication reconciliation and counseling for this patient. The patient's discharge medication list was reviewed for discrepancies and discrepancies were resolved. The patient was counseled on the following discharge medications and changes in medications for homegoing were reviewed. The Reason for Use, instructions for use, and potential side effects were reviewed for all new medications. The patient's questions regarding all of their medications were answered. 1. Amlodipine 10 mg PO daily 2. Hydrochlorothiazide 12.5 mg PO daily 3. Lisinopril 20 mg PO daily The patient was able to verbally demonstrate an understanding of their discharge medications. Medications at Discharge Home Medications cholecalciferol (vitamin D3) 25 mcg (1,000 unit) chewable tablet (VitaJoy Daily D) 25 mcg PO DAILY 06/02/25 echinacea 380 mg capsule 380 mg PO DAILY 06/02/25 magnesium 250 mg tablet 250 mg PO DAILY 06/02/25 omega-3 fatty acids 1,000 mg capsule 1,000 mg PO DAILY 06/02/25 vitamin E 268 mg (400 unit) capsule 268 mg PO DAILY 06/02/25 amlodipine 10 mg tablet 10 mg PO DAILY #30 tabs 06/03/25 hydrochlorothiazide 12.5 mg tablet 12.5 mg PO DAILY #30 tabs 06/03/25 lisinopril 20 mg tablet 20 mg PO DAILY #30 tabs 06/03/25
--- NOTE | 2025-06-03 14:15 | CASEMGMT ---
Patient has order for discharge. RN CM in to discuss needs at discharge. Patient denies needs or help at discharge. Patient had no further questions or concerns.
[2025-06-03 14:35] VITALS: BP 150/88; PULSE 68; RESP 18; TEMP 36.5; O2SAT 98
--- NOTE | 2025-06-03 14:43 | CT_ITS ---
PROCEDURE: CTA HEAD AND NECK W/ CONTRAST 06/03/2025 REASON FOR EXAM: STROKE-LIKE SYMPTOMS TECHNIQUE: Procedure Code: CTCTA.HDNCK Modality: CT Procedure: CTA HEAD AND NECK W/ CONTRAST Multiplanar Sagittal and Coronal images were obtained. 3D post processing was performed CONTRAST: Isovue 370 VOLUME: 87 mL One or more dose reduction techniques were used (e.g., Automated exposure control, adjustment of the mA and/or kV according to patient size, use of iterative reconstruction technique). RADIATION DOSE SUMMARY: CTDlvol: 83 mGy DLP: 1772 mGycm COMPARISON: June 03, 2025, June 02, 2025 FINDINGS: Aortic Arch: Bovine arch is present, a normal variant. Brachiocephalic and Subclavians: Unremarkable RIGHT Carotid: Right CCA: Unremarkable. Right ICA: Unremarkable. Maximum stenosis (NASCET): 0 % Right ECA: Unremarkable. LEFT Carotid: Left CCA: Unremarkable. Left ICA: Unremarkable. Maximum stenosis (NASCET): 0 % Left ECA: Unremarkable. Vertebrals: Left is slightly dominant. Both are widely patent. RIGHT Vertebral: Unremarkable. LEFT Vertebral: Unremarkable. Anatomy: [place] anatomy is normal. Posterior communicating arteries are absent. Aneurysm or avm: No intracranial aneurysms or large vascular malformations are identified. Anterior cerebral arteries: Unremarkable Middle cerebral arteries: Unremarkable. Basilar artery: Unremarkable. Posterior cerebral arteries: Unremarkable. Other major branches of the posterior circulation: Unremarkable. Major venous structures: Unremarkable. Other findings: Neck: No lymphadenopathy. Lungs: Lung apices are clear. Bones: Bones are unremarkable. CT/CTA Head AND Neck W/ Contrast IMPRESSION: 1. No large vessel occlusion. 2. No aneurysm or stenosis. Reading Location: [id number]
== END 2025-06-03 16:02 | disposition home or self-care (01) ==
LOC: ED 19:08 → PCU 20:14
PROVIDERS: Admitting Provider Hospitalist; Emergency Provider Emergency Medicine; Visit Provider Internal Medicine
DX: I16.0 Hypertensive urgency (principal); E66.812 Obesity, class 2; H91.91 Unspecified hearing loss, right ear; Z68.36 Body mass index [BMI] 36.0-36.9, adult; R27.0 Ataxia, unspecified; I10 Essential (primary) hypertension; R29.90 Unspecified symptoms and signs involving the nervous system; Z87.442 Personal history of urinary calculi
CPT/HCPCS: 36415; 70450; 70496; 70498; 70551; 80048; 80061; 83036; 84443; 85025; 85027; 93005; 93306; 94762; 96374; 96376; 97802; 99221; 99285; Q9957; Q9967; A4216; G0378